=== PATIENT | male | born 1960 | race African-American/Black ===

== ENCOUNTER 2017-10-29 15:02 | Emergency (ER) | payer OTHER ==
[~2017-10-29] VITALS: Ht 175.3 cm; Wt 83.0 kg
[~2017-10-29 15:02] MED LIST: HYDROCHLOROTH12.5 M1 PO; PROZ20 PO; RISPERIDONE2 MG PO
[2017-10-29 15:13] VITALS: Ht 175.3 cm; Wt 83.0 kg
[2017-10-29 16:15] LABS: microscopic required? YES; urine erythrocyte 2+ (NEGATIVE)
[2017-10-29 16:36] LABS: CALCIUM 8.6 mg/dL (8.5-10.1); CARBON DIOXIDE 29.1 mmol/L (21-32); CHLORIDE SERUM 101 mmol/L (98-107); CREATININE SERUM 1.1 mg/dL (0.7-1.3); GFR1 > 60 mL/min; GLUCOSE SERUM 96 mg/dL (74-106); POTASSIUM SERUM 4.1 mmol/L (3.5-5.1); SODIUM SERUM 136 mmol/L (136-145)
[2017-10-29 17:09] VITALS: BP 135/85
== END 2017-10-29 17:09 | disposition home or self-care (01) ==
LOC: ED 15:02
PROVIDERS: Emergency Medicine
DX: N20.0 Calculus of kidney (principal); R07.81 Pleurodynia; I10 Essential (primary) hypertension; R19.7 Diarrhea, unspecified; R42 Dizziness and giddiness; T78.05XA Anaphylactic reaction due to tree nuts and seeds, initial encounter; Z91.018 Allergy to other foods